=== PATIENT | female | born 1935 | race Caucasian/White ===

== ENCOUNTER 2017-11-26 16:20 | Emergency (ER) | payer OTHER ==
--- NOTE | 2017-11-26 17:21 | PDOC ---
History of Present Illness - General History Source: Patient Exam Limitations: No Limitations - History of Present Illness Initial Comments: 11/26/17 17:51 The patient is a 82 year old female with a significant PMH of COPD who presents to the emergency department s/p fall sustained on the left hip at approximately 7:30AM today. The patient states she slipped on her tile floor kitchen and sustained the fall on her left hip and left wrist. The patient describes the left hip pain as a 10/10 and throbbing. The patient denies LOC or head trauma. The patient states she took two aspirins after the fall and then 2 aleves approximately 1 hour ago. The patient denies numbness or tingling to her extremities. The patient denies neck pain, chest pain, shortness of breath, headache and dizziness. Denies fever, chills, nausea, vomit, diarrhea and constipation. Denies dysuria, frequency, urgency and hematuria. Allergies: NKA Past surgical history: None reported. Social history: Current smoker. Social alcohol use. No reported drug use. PCP: Dr. Rabago <Alisa Gentile - Last Filed: 11/26/17 17:51> <Juma Sanon - Last Filed: 11/26/17 18:41> - General Chief Complaint: Injury Stated Complaint: FELL, LEFT WRIST & HIP PAIN Time Seen by Provider: 11/26/17 17:14 Past History <Alisa Gentile - Last Filed: 11/26/17 17:51> - Past Medical History Anemia: No Asthma: No Cancer: No Cardiac Disorders: No CVA: No COPD: No CHF: No Dementia: No Diabetes: No GI Disorders: No Disorders: No HTN: No Hypercholesterolemia: No Liver Disease: No Seizures: No Thyroid Disease: No - Surgical History Abdominal Surgery: No Appendectomy: No Cardiac Surgery: No Cholecystectomy: No Lung Surgery: No Neurologic Surgery: No Orthopedic Surgery: Yes - Suicide/Smoking/Psychosocial Hx Smoking History: Never smoked Have you smoked in the past 12 months: No If you are a former smoker, when did you quit?: 09/01 Hx Alcohol Use: Yes (SOCIAL) Drug/Substance Use Hx: No Substance Use Type: None Hx Substance Use Treatment: No <Juma Sanon - Last Filed: 11/26/17 18:41> - Past Medical History Allergies/Adverse Reactions: Allergies Allergy/AdvReac Type Severity Reaction Status Date / Time No Known Allergies Allergy Unverified 07/18/13 08:00 Home Medications: Ambulatory Orders Naproxen Sodium [Aleve] 440 mg PO ONCE 11/26/17 Review of Systems - Review of Systems Able to Perform ROS?: Yes Comments:: 11/26/17 17:53 ROS: A complete review of 10 out of 10 review of systems is taken and is negative apart from what is previously mentioned below and in the HPI. <Alisa Gentile - Last Filed: 11/26/17 17:51> *Physical Exam - Vital Signs Last Vital Signs Temp Pulse Resp BP Pulse Ox 98.3 F 85 18 120/88 98 11/26/17 17:05 11/26/17 17:05 11/26/17 17:05 11/26/17 17:05 11/26/17 17:05 - Physical Exam Comments: 11/26/17 17:54 Vitals: Triage vital signs reviewed General Appearance: No acute distress, well nourished, well developed Head: Atraumatic Eyes: Pupils equal reactive round, extraocular movement intact Neck: Supple; No nuchal rigidity Chest Wall: Nontender Cardiac: Regular rate and rhythm, no murmurs, no rubs, no gallops Lungs: Clear to auscultation bilateral, good air movement bilaterally Abdomen: Soft, nondistended, normal bowel sounds, nontender to palpation Extremities: (+) Tenderness to palpation left pelvis, swelling and tender to palpation left distal radius, neurovascularly intact distally. Full range of motion to all extremities, no cyanosis, clubbing, or edema Skin: Warm and dry, no rashes or lesions, no rash, no petechiae Neuro: AOX3; Cranial Nerves 2-12 grossly intact, Strength intact to all extremities, Sensation intact to all extremities. Psych: Normal mood, normal affect <Alisa Gentile - Last Filed: 11/26/17 17:51> Medical Decision Making - Medical Decision Making 11/26/17 18:40 82 years old past medical history significant for COPD presents to ED with fall this morning landed on her left wrist and left hip no head injury mechanical fall no prodrome prior to fall We'll order x-rays pain meds and reassess Dr. Aguayo to follow up xrays rasses and dispo <Talita,Juma - Last Filed: 11/26/17 18:41> *DC/Admit/Observation/Transfer - Attestations Scribe Attestion: 11/26/17 18:17 Documentation prepared by Alisa Gentile, acting as medical secretary for Juma Sanon MD. <Alisa Gentile - Last Filed: 11/26/17 17:51> <Juma Sanon - Last Filed: 11/26/17 18:41> Diagnosis at time of Disposition: Pelvic pain Fall Qualifiers: Encounter type: initial encounter Qualified Code(s): W19.XXXA - Unspecified fall, initial encounter Wrist pain Qualifiers: Laterality: left Qualified Code(s): M25.532 - Pain in left wrist - Discharge Dispostion Condition at time of disposition: Good - Referrals Referrals: Javier Rabago MD [Primary Care Provider] -
[2017-11-26] MEDS ORDERED: IBUPROFEN 400 MG TABLET (FP) PO ONE (17:23)
[2017-11-26] MEDS ORDERED: traMADol HCL 50 MG TABLET PO ONE (17:24)
[2017-11-26 17:29] VITALS: BP 120/88; PULSE 85; TEMP 98.3; BMI 20.5
[2017-11-26] MEDS ORDERED: traMADol HCL 50 MG TABLET ONE (17:48)
--- NOTE | 2017-11-26 20:38 | PDOC ---
History of Present Illness - General Chief Complaint: Injury Stated Complaint: FELL, LEFT WRIST & HIP PAIN Time Seen by Provider: 11/26/17 17:14 Past History - Past Medical History Allergies/Adverse Reactions: Allergies Allergy/AdvReac Type Severity Reaction Status Date / Time No Known Allergies Allergy Unverified 07/18/13 08:00 Home Medications: Ambulatory Orders Naproxen Sodium [Aleve] 440 mg PO ONCE 11/26/17 Oxycodone HCl/Acetaminophen [Percocet 5-325 mg Tablet] 1 tab PO Q6H PRN #12 tablet MDD 4 tabs 11/26/17 Anemia: No Asthma: No Cancer: No Cardiac Disorders: No CVA: No COPD: No CHF: No Dementia: No Diabetes: No GI Disorders: No Disorders: No HTN: No Hypercholesterolemia: No Liver Disease: No Seizures: No Thyroid Disease: No - Surgical History Abdominal Surgery: No Appendectomy: No Cardiac Surgery: No Cholecystectomy: No Lung Surgery: No Neurologic Surgery: No Orthopedic Surgery: Yes - Suicide/Smoking/Psychosocial Hx Smoking History: Never smoked Have you smoked in the past 12 months: No If you are a former smoker, when did you quit?: 09/01 Hx Alcohol Use: Yes (SOCIAL) Drug/Substance Use Hx: No Substance Use Type: None Hx Substance Use Treatment: No *Physical Exam - Vital Signs Last Vital Signs Temp Pulse Resp BP Pulse Ox 98.3 F 85 18 120/88 98 11/26/17 17:05 11/26/17 17:05 11/26/17 17:05 11/26/17 17:05 11/26/17 17:05 ED Treatment Course - Medications Given in the ED: ED Medications Discontinued Medications Generic Name Dose Route Start Last Admin Trade Name Freq PRN Reason Stop Dose Admin Tramadol HCl 50 mg 11/26/17 17:24 11/26/17 18:45 Ultram - PO 11/26/17 17:25 50 mg ONCE ONE Administration Medical Decision Making - Medical Decision Making 11/27/17 06:42 volar splint placed L Wrist cane with instructions analgesia ortho fu *DC/Admit/Observation/Transfer Diagnosis at time of Disposition: Pelvic pain Fall Qualifiers: Encounter type: initial encounter Qualified Code(s): W19.XXXA - Unspecified fall, initial encounter Wrist pain Qualifiers: Laterality: left Qualified Code(s): M25.532 - Pain in left wrist - Discharge Dispostion Disposition: HOME Condition at time of disposition: Good - Prescriptions Prescriptions: Oxycodone HCl/Acetaminophen [Percocet 5-325 mg Tablet] 1 tab PO Q6H PRN #12 tablet MDD 4 tabs PRN Reason: Pain - Referrals Referrals: Javier Rabago MD [Primary Care Provider] - Call tomorrow Harpreet Weiss MD [Staff Physician] - Call tomorrow - Patient Instructions Printed Discharge Instructions: DI for Wrist Fracture - Post Discharge Activity
== END 2017-11-26 20:35 | disposition home or self-care (01) ==
LOC: SUPCPDRO 16:20 → FER 16:20
DX: M25.532 Pain in left wrist (principal); R10.2 Pelvic and perineal pain; J44.9 Chronic obstructive pulmonary disease, unspecified; W01.0XXA Fall on same level from slipping, tripping and stumbling without subsequent striking against object, initial encounter; Y93.89 Activity, other specified; Y92.009 Unspecified place in unspecified non-institutional (private) residence as the place of occurrence of the external cause; Z87.891 Personal history of nicotine dependence
CPT/HCPCS: 73110-TC-LR-FY; 73130-TC-LR-FY; 73523-TC-FY; 99281-25

== ENCOUNTER 2020-11-25 11:55 | Emergency (ER) | payer OTHER ==
[2020-11-25 12:06] VITALS: BP 141/84; PULSE 76; TEMP 97.7; BMI 19.7
[2020-11-25] MEDS ORDERED: ACETAMINOPHEN 160 MG/5 ML *Children Solution PO ONE (14:25)
== END 2020-11-25 14:37 | disposition home or self-care (01) ==
LOC: FER 11:55
DX: M25.511 Pain in right shoulder (principal); S42.201A Unspecified fracture of upper end of right humerus, initial encounter for closed fracture
CPT/HCPCS: 71046-TC-FY; 73030-TC-RT-FY; 73060-TC-RT-FY; 73070-TC-RT-FY; 73090-TC-RT-FY; 73110-TC-RT-FY; 73130-TC-RT-FY; 99285-25

== ENCOUNTER 2022-02-18 03:16 | Emergency (ER) | payer OTHER ==
[2022-02-18 03:24] VITALS: BP 142/80; PULSE 70; TEMP 98; BMI 18.0
[2022-02-18] MEDS ORDERED: ONDANSETRON 4 MG/2 ML VIAL IVPUSH ONE (03:24)
[2022-02-18] MEDS ORDERED: SODIUM CHLORIDE 0.9% 500 ML INFUS.BAG IV ONE (03:24)
[2022-02-18] MEDS ORDERED: ONDANSETRON 4 MG/2 ML VIAL ONE (03:38)
[2022-02-18 04:07] LABS: BASO % 1.2 % (0-2.0); EOS % 0.4 % (0-4.5); HEMATOCRIT 39.9 % (32.4-45.2); MCH 29.8 pg (25.7-33.7); MEAN CELL VOLUME 85.1 fl (80-96); MEAN PLT VOLUME 9.2 fl (7.5-11.1); MONO % 5.4 % (3.8-10.2); PLATELET COUNT 104 10^3/uL (134-434); RBC 4.69 M/mm3 (3.60-5.2); RDW 13.9 % (11.6-15.6)
[2022-02-18 04:11] LABS: EPI CELLS 31 /uL (0-25.1); HYALINE CASTS 1 /uL (0-3.1); URINE APPEARANCE CLEAR; URINE BACTERIA 243 /uL (0-1359); URINE BILIRUBIN NEGATIVE (NEGATIVE); URINE COLOR YELLOW; URINE GLUCOSE (UA) NEGATIVE (NEGATIVE); URINE KETONE TRACE (NEGATIVE); URINE LEUK ESTERASE 2+ (NEGATIVE); URINE NITRITE NEGATIVE (NEGATIVE); URINE PROTEIN NEGATIVE (NEGATIVE); URINE RBC 26 /uL (0-23.9); URINE WBC 93 /uL (0-25.8)
[2022-02-18 04:25] LABS: CHLORIDE 106 mmol/L (98-107); SODIUM 141 mmol/L (136-145)
[2022-02-18 04:28] LABS: ANION GAP 8 MMOL/L (8-16); BLOOD UREA NITROGEN 17.1 mg/dL (7-18); CALCIUM 9.2 mg/dL (8.5-10.1); CO2 27 mmol/L (21-32); GLUCOSE,RANDOM 128 mg/dL (74-106); LIPASE 46 U/L (73-393)
[2022-02-18 04:29] LABS: ALBUMIN 4.4 g/dl (3.4-5.0)
[2022-02-18 04:31] LABS: CREATININE 0.6 mg/dL (0.55-1.3); SGOT/AST 19 U/L (15-37); SGPT/ALT 15 U/L (13-61)
[2022-02-18 04:33] LABS: BILIRUBIN,TOTAL 0.8 mg/dL (0.2-1); TOT PROT 7.4 g/dl (6.4-8.2)
[2022-02-18 04:34] LABS: ALK PHOS 72 U/L (45-117)
[2022-02-18] MEDS ORDERED: NITROFURANTOIN MACROCRYSTAL 50 MG CAPSULE (FP) ONE (04:49)
[2022-02-18] MEDS ORDERED: NITROFURANTOIN MACROCRYSTAL 50 MG CAPSULE (FP) PO SCH (05:00)
== END 2022-02-18 05:07 | disposition home or self-care (01) ==
LOC: FER 03:16
PROC: 3E033GC Introduction of Other Therapeutic Substance into Peripheral Vein, Percutaneous Approach (ICD-10-PCS; principal; 2022-02-18)
DX: N30.00 Acute cystitis without hematuria (principal)
CPT/HCPCS: 0241U-QW; 36415; 70450-TC; 71045-TC-FY; 80053; 81003; 82550; 83605; 83690; 84484; 85025; 87086; 87186; 93005; 99285-25

== ENCOUNTER 2022-10-12 20:01 | Emergency (ER) | payer OTHER ==
[2022-10-12 20:17] VITALS: BP 155/88; PULSE 100; RESP 36; TEMP 97.9; BMI 20.5
[2022-10-12] MEDS ORDERED: methylPREDNISolone NA SUCC 125 MG/2 ML VIAL IVPUSH ONE (20:23)
[2022-10-12] MEDS ORDERED: ALBUTEROL SO4 2.5/IPRATROPIUM 0.5 INH SOL 3 ML VIAL.NEB. NEB ONE ×2 (20:24)
[2022-10-12] MEDS: ALBUTEROL SO4 2.5/IPRATROPIUM 0.5 INH SOL 3 ML VIAL.NEB. NEB ONE ×2 (20:27→20:32)
[2022-10-12 21:00] LABS: HEMATOCRIT 40.2 % (32.4-45.2); HEMOGLOBIN 14.1 G/dL (10.7-15.3); MCH 30.1 pg (25.7-33.7); MCHC 35.1 g/dl (32.0-36.0); MEAN CELL VOLUME 85.6 fl (80-96); MEAN PLT VOLUME 8.8 fl (7.5-11.1); PLATELET COUNT 115.9 10^3/uL (134-434); WHITE BLOOD COUNT 5.1 10^3/uL (4.0-10.8)
[2022-10-12 21:02] LABS: ALBUMIN 4.5 g/dl (3.4-5.0); BILIRUBIN,TOTAL 0.7 mg/dl (0.2-1); CALCIUM 9.8 mg/dl (8.5-10); CREATININE 0.7 mg/dl (0.55-1.3); TOT PROT 7.6 g/dl (6.4-8.2)
[2022-10-12] MEDS ORDERED: VANCOMYCIN 1 GM in D5W (PRE-DOCKED) 1,000 MG/250 ML IVPB ONE (22:30)
[2022-10-12] MEDS ORDERED: PIPERACILLIN/TAZOB 3.375 GM 3.375 GM in DEXTROSE 5%-WATER - 50 ML IVPB ONE (22:31)
[2022-10-12 23:29] LABS: ARTERIAL BLD GAS O2 SATURATION 93.8 % (95-98); ARTERIAL BLOOD GAS BASE EXCESS -4.9 mmol/L (-2-2); ARTERIAL BLOOD GAS PO2 69.1 mmHg (80-100); ARTERIAL BLOOD GAS pH 7.381 (7.350-7.450)
[2022-10-12] MEDS ORDERED: ALBUTEROL SO4 0.083% IH SOL 2.5 MG/3 ML VIAL.NEB. NEB ONE ×2 (23:34→23:42)
== END 2022-10-13 00:15 | disposition home or self-care (01) ==
LOC: FER 20:01
PROC: 3E0F7GC Introduction of Other Therapeutic Substance into Respiratory Tract, Via Natural or Artificial Opening (ICD-10-PCS; principal; 2022-10-12)
PROC: 3E0F7GC Introduction of Other Therapeutic Substance into Respiratory Tract, Via Natural or Artificial Opening (ICD-10-PCS; 2022-10-12)
PROC: 3E033GC Introduction of Other Therapeutic Substance into Peripheral Vein, Percutaneous Approach (ICD-10-PCS; 2022-10-12)
PROC: 3E03329 Introduction of Other Anti-infective into Peripheral Vein, Percutaneous Approach (ICD-10-PCS; 2022-10-12)
PROC: 3E03329 Introduction of Other Anti-infective into Peripheral Vein, Percutaneous Approach (ICD-10-PCS; 2022-10-12)
DX: J44.1 Chronic obstructive pulmonary disease with (acute) exacerbation (principal)
CPT/HCPCS: 0241U-QW; 36415; 36600; 71045-TC-FY; 80053; 82803; 84484; 85027; 93005; 99285-25